=== PATIENT | male | born 1980 | race Caucasian/White ===

== ENCOUNTER 2017-07-10 15:37 | Emergency (ER) | payer MEDICAID ==
[~2017-07-10] VITALS: Ht 175.3 cm; Wt 61.2 kg
[2017-07-10 15:37] VITALS: BP 142/88
[~2017-07-10 15:37] MED LIST: ANUSOL HC1 SUPP RECTAL; ANUSOL-HC CREAM30 GM RECTAL; ATIVAN0.5 MG ORAL; COLACE100 MG ORAL; IBUPROFEN600 MG ORAL; KEFLEX500 MG ORAL; NKM; NORCO 5-325 TA1 EACH ORAL; PHENAZOPYRIDIN200 MG ORAL; STRIBILD TABLE1 EACH PO
--- NOTE | 2017-07-12 07:30 | Emergency Room Report ---
History of Present Illness General Chief Complaint: Behavioral Complaint Source: EMS Present Illness Allergies: Coded Allergies: No Known Allergies (Unverified , 12/05/13) Nursing Documentation-[facility] History Of Psychiatric Problem: Yes - ETOH abuse Physical Exam Vital Signs Date Time Temp Pulse Resp B/P (MAP) Pulse Ox O2 Delivery O2 Flow Rate FiO2 07/10/17 15:30 98.4 100 16 142/88 99 Room Air Medical Decision Making Diagnostic Impression: Primary Impression: left withou being seen ER Course Patient brought in by ambulance for anxiety. Upon arrival patient states he did not want to be evaluated and wants to leave. Patient will not provide MD provider or nurse with history Patient is cursing and yelling at staff. Patient left without being seen Last Vital Signs Date Time Temp Pulse Resp B/P (MAP) Pulse Ox O2 Delivery O2 Flow Rate FiO2 07/10/17 15:37 98.4 100 16 142/88 99 Room Air Status: unchanged Disposition: LEFT W/OUT BEING SEEN Condition: Unknown Referrals: NOT CHOSEN SELVIN/,REFERRING (PCP) ZOILA RAMON M.D. Jul 12, 2017 07:30
--- NOTE | 2017-07-12 07:30 | Emergency Room Report ---
History of Present Illness General Chief Complaint: Behavioral Complaint Source: EMS Present Illness Allergies: Coded Allergies: No Known Allergies (Unverified , 12/05/13) Nursing Documentation-[facility] History Of Psychiatric Problem: Yes - ETOH abuse Physical Exam Vital Signs Date Time Temp Pulse Resp B/P (MAP) Pulse Ox O2 Delivery O2 Flow Rate FiO2 07/10/17 15:30 98.4 100 16 142/88 99 Room Air Medical Decision Making Diagnostic Impression: Primary Impression: left withou being seen ER Course Patient brought in by ambulance for anxiety. Upon arrival patient states he did not want to be evaluated and wants to leave. Patient will not provide MD provider or nurse with history Patient is cursing and yelling at staff. Patient left without being seen Last Vital Signs Date Time Temp Pulse Resp B/P (MAP) Pulse Ox O2 Delivery O2 Flow Rate FiO2 07/10/17 15:37 98.4 100 16 142/88 99 Room Air Status: unchanged Disposition: LEFT W/OUT BEING SEEN Condition: Unknown Referrals: NOT CHOSEN SELVIN/,REFERRING (PCP) ZOILA RAMON M.D. Jul 12, 2017 07:30
--- NOTE | 2017-07-12 07:30 | Emergency Room Report ---
History of Present Illness General Chief Complaint: Behavioral Complaint Source: EMS Present Illness Allergies: Coded Allergies: No Known Allergies (Unverified , 12/05/13) Nursing Documentation-[facility] History Of Psychiatric Problem: Yes - ETOH abuse Physical Exam Vital Signs Date Time Temp Pulse Resp B/P (MAP) Pulse Ox O2 Delivery O2 Flow Rate FiO2 07/10/17 15:30 98.4 100 16 142/88 99 Room Air Medical Decision Making Diagnostic Impression: Primary Impression: left withou being seen ER Course Patient brought in by ambulance for anxiety. Upon arrival patient states he did not want to be evaluated and wants to leave. Patient will not provide MD provider or nurse with history Patient is cursing and yelling at staff. Patient left without being seen Last Vital Signs Date Time Temp Pulse Resp B/P (MAP) Pulse Ox O2 Delivery O2 Flow Rate FiO2 07/10/17 15:37 98.4 100 16 142/88 99 Room Air Status: unchanged Disposition: LEFT W/OUT BEING SEEN Condition: Unknown Referrals: NOT CHOSEN SELVIN/,REFERRING (PCP) ZOILA RAMON M.D. Jul 12, 2017 07:30
== END 2017-07-10 15:45 | disposition left against medical advice (07) ==
LOC: EDBD 15:37 → EMR 15:43
DX: F41.9 Anxiety disorder, unspecified (principal); F10.10 Alcohol abuse, uncomplicated; Z53.21 Procedure and treatment not carried out due to patient leaving prior to being seen by health care provider
CPT/HCPCS: 99281

== ENCOUNTER 2019-03-23 19:00 | Emergency (ER) | payer MEDICAID ==
[~2019-03-23] VITALS: Ht 182.9 cm; Wt 64.9 kg
[~2019-03-23 19:00] MED LIST changes: +LEXAPRO10 MG ORAL
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
[2019-03-23 19:16] VITALS: BP 148/87
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
--- NOTE | 2019-03-23 20:38 | Diagnostic Imaging Report ---
Indication: Chest pain. Trauma Technique: Continuous helical transaxial imaging of the chest was obtained from the thoracic inlet to the upper abdomen. No intravenous contrast was administered. Coronal 2-D reformats were also obtained. Total Dose length Product (DLP): 719.[address] Dose Index Volume (CTDIvol): 16.65 mGy Comparison: none Findings: Lungs are clear. No pneumothorax or consolidative opacities or interstitial identified. No pleural effusion or mediastinal fluid or hematoma identified. Osseous structures are unremarkable. Visualized upper abdomen is unremarkable. There is some breathing motion present. IMPRESSION: Negative noncontrast CT of the chest. [facility] has communicated the preliminary results to the Emergency Department. Their findings are largely concordant with this report. The CT scanner at [facility] is accredited by the [employer] and the scans are performed using dose optimization techniques as appropriate to a performed exam including Automatic Exposure control.
[2019-03-23] MEDS ORDERED: TRAMADOL HCL50 MG ORAL (21:01)
[2019-03-23] MEDS ORDERED: IBUPROFEN600 MG ORAL (21:01)
[2019-03-23 21:15] VITALS: BP 128/75
--- NOTE | 2019-03-23 21:15 | NUR ---
ED Nurse Note: pt cleared to be d/c per ERMD, pt discharge and aftercare instruction provided w/ prescription, pt education done via discussion and handout, pt advised to follow up with pcp or return to ed if changes in condition, pt vss, ambulatory w/ steady gait, left w/ all belongings accompanied by .
== END 2019-03-23 21:15 | disposition home or self-care (01) ==
LOC: EDBD 19:00 → EMR 19:33
DX: S29.011A Strain of muscle and tendon of front wall of thorax, initial encounter (principal); S00.33XA Contusion of nose, initial encounter; Y04.2XXA Assault by strike against or bumped into by another person, initial encounter
CPT/HCPCS: 71250; 99284

== ENCOUNTER 2020-02-25 03:18 | Emergency (ER) | payer MEDICAID ==
[~2020-02-25] VITALS: Ht 180.3 cm; Wt 72.6 kg
[~2020-02-25 03:18] MED LIST changes: +TRAMADOL HCL50 MG ORAL
[2020-02-25 03:26] VITALS: BP 153/102
[2020-02-25] MEDS ORDERED: TRAZODONE HCL150 MG ORAL (03:26)
[2020-02-25 03:35] VITALS: BP 153/102
--- NOTE | 2020-02-25 03:38 | Emergency Room Report ---
History of Present Illness General Chief Complaint: Behavioral Complaint Source: Patient Present Illness HPI This is a 39-year-old male with a history of HIV and bipolar. He presents with chief complaint of not feeling well. He said this been ongoing tonight. He is a very poor historian. Not cooperative. Did say that he does not feel well. Denies any fever chills. Denies any nausea or vomiting. Said that he is shaking. No cough or congestion. Nothing made it better. Nothing made it worse. He said he is taking Antabuse and has not had any alcohol since . Denies any drug abuse. Is taking Lexapro and Adderall as prescribed. Denies suicidal thoughts or homicidal thought. Allergies: Coded Allergies: No Known Allergies (Unverified , 12/05/13) COVID-19 Screening Contact w/high risk pt: No Recent Travel to affected area: No Experienced COVID-19 symptoms?: No COVID-19 Testing performed NURSING CLERK: No Patient History Past Medical History: see triage record, old chart reviewed, psych hx, HIV Past Surgical History: none Pertinent Family History: none Social History: Denies: smoking Immunizations: other Reviewed Nursing Documentation: PMH: Agreed; PSxH: Agreed Nursing Documentation-PMH Past Medical History: No History, Except For Review of Systems Constitutional: Reports: weakness Eye: Denies: eye pain, blurred vision ENT: Denies: ear pain, nose congestion, throat swelling Respiratory: Denies: cough, shortness of breath Cardiovascular: Denies: chest pain, palpitations Gastrointestinal: Denies: abdominal pain, diarrhea, nausea, vomiting Musculoskeletal: Denies: back pain, joint pain Skin: Denies: rash Neurological: Denies: headache, numbness Endocrine: Denies: increased thirst, increased urine Hematologic/Lymphatic: Denies: easy bruising All Other Systems: negative except mentioned in HPI Physical Exam Vital Signs Date Time Temp Pulse Resp B/P (MAP) Pulse Ox O2 Delivery O2 Flow Rate FiO2 02/25/20 03:22 98.2 100 22 153/102 (119) 96 Room Air Vitals with high blood pressure Sp02 EP Interpretation: reviewed, normal General Appearance: well appearing, no apparent distress, alert, other - Not cooperative Head: normocephalic, atraumatic Eyes: bilateral eye PERRL, bilateral eye EOMI ENT: hearing grossly normal, normal pharynx Neck: full range of motion, supple, no meningismus Respiratory: chest non-tender, lungs clear, normal breath sounds Cardiovascular #1: regular rate, rhythm, no murmur Gastrointestinal: normal bowel sounds, non tender, no mass, no organomegaly, no bruit, non-distended Musculoskeletal: back normal, normal range of motion Neurologic: no focal defects - Patient is shaking his legs back and forth. He would move his arm back and forth while talking to me. There is no focal deficit. He is not cooperating when I asked him to sit up to listen to his lungs. Psychiatric: anxious Medical Decision Making Diagnostic Impression: Primary Impression: Behavioral disorder ER Course Patient presents with a psychiatric issue. He is not suicidal homicidal. He is not cooperative as far as answering questions and following exams. There is no focal deficit. He is not tachycardic. I see no evidence any seizure disorder. No criteria for 5150. Patient refused IV work-up or urinalysis. Patient claimed that he cannot move or walk and has no energy. While he is not cooperative to refuse work-up, I told him I will be discharging him. He got up and walk without any difficulty. I suspect this more of a psychiatric issue rather than a physical issue. Last Vital Signs Date Time Temp Pulse Resp B/P (MAP) Pulse Ox O2 Delivery O2 Flow Rate FiO2 02/25/20 03:26 100 22 Room Air 02/25/20 03:26 98.2 153/102 96 Status: unchanged Disposition: HOME, SELF-CARE Condition: Stable Referrals: NON PHYSICIAN (PCP) Patient Instructions: Self-Destructive Behavior Additional Instructions: Abstain from drugs and alcohol. Follow-up with your doctor in 7 days. Return if worse. Charlie Anton MD Feb 25, 2020 03:38
== END 2020-02-25 03:35 | disposition left against medical advice (07) ==
LOC: EDBD 03:18 → EMR 03:30
DX: F91.9 Conduct disorder, unspecified (principal); B20 Human immunodeficiency virus [HIV] disease; F31.9 Bipolar disorder, unspecified; R53.1 Weakness
CPT/HCPCS: 99282

== ENCOUNTER 2020-10-10 22:46 | Emergency (ER) | payer MEDICAID ==
[~2020-10-10] VITALS: Ht 185.4 cm; Wt 64.9 kg
[~2020-10-10 22:46] MED LIST changes: +TRAZODONE HCL150 MG ORAL
[2020-10-10] MEDS ORDERED: ATIVAN1 MG ORAL (23:29)
--- NOTE | 2020-10-10 23:29 | Emergency Room Report ---
History of Present Illness General Chief Complaint: Behavioral Complaint Source: Patient Present Illness HPI This a 40-year-old male with psychiatric history. He presents with chief complaint of racing thoughts and paranoia. This been ongoing since last June. He said he stops drinking and it did not help. He has no drug use. He is smoking more because he hearing more voices and seems to be more anxious. Clean sleep. He already seen his primary care doctor and a psychiatrist. He is taking Atarax, Abilify and Risperdal without any relief. He denies suicidal thoughts homicidal thought. He felt persecuted. Allergies: Coded Allergies: No Known Allergies (Unverified , 12/05/13) COVID-19 Screening COVID-19 risk:Contact w/high r: No COVID-19 risk:Travel to affect: No Has patient experienced gonzales: No COVID-19 Testing performed EHS ENGINEER: Yes - 2 days ago COVID-19 Screening: Negative COVID-19 COVID-19 Testing Source: unknown Patient History Past Medical History: see triage record, old chart reviewed, psych hx Past Surgical History: none Family History: none Social History: tobacco use Immunizations: UTD Reviewed Nursing Documentation: PMH: Agreed; PSxH: Agreed Nursing Documentation-PMH Past Medical History: No History, Except For Review of Systems ENT: Denies: sore throat Cardiovascular: Denies: chest pain, palpitations Gastrointestinal/Abdominal: Denies: nausea, vomiting, diarrhea Musculoskeletal: Denies: back problems Skin: Denies: rash Psychiatric: Reports: anxiety Neurological: Denies: LOPEZ, seizures All Other Systems: negative except mentioned in HPI Physical Exam Vital Signs Date Time Temp Pulse Resp B/P (MAP) Pulse Ox O2 Delivery O2 Flow Rate FiO2 10/10/20 22:47 98.8 93 18 118/79 (92) 100 Room Air Vitals normal Sp02 EP Interpretation: reviewed, normal General Appearance: alert/responsive, no apparent distress, non-toxic Head: normocephalic, atraumatic Eyes: PERRL, EOMI ENT: oropharynx normal Neck: supple/symm/no masses Respiratory: effort normal, no rhonchi, no wheezing Cardiovascular: no murmur, gallop, rub Gastrointestinal: non-tender, no mass, non-distended, no rebound/guarding, normal bowel sounds Musculoskeletal: gait & station normal Neurologic: oriented x3, sensory intact, motor strength/tone normal Psychiatric: no suicidal/homicidal ideation, anxious Skin: no rash, normal palpation Medical Decision Making Diagnostic Impression: Primary Impression: Behavioral disorder ER Course Patient presents with behavior disorder. This may be bipolar with paranoia. He is not suicidal or homicidal. No criteria for 5150. Better after Ativan. Will discharge home with psychiatry follow-up. Last Vital Signs Date Time Temp Pulse Resp B/P (MAP) Pulse Ox O2 Delivery O2 Flow Rate FiO2 10/10/20 22:47 98.8 93 18 118/79 (92) 100 Room Air Status: improved Disposition: HOME, SELF-CARE Condition: Stable Scripts Lorazepam* (ATIVAN*) 1 Mg Tablet 1 MG ORAL THREE TIMES A DAY, #21 TAB Prov: Charlie Anton MD 10/10/20 Additional Instructions: Follow-up with your psychiatrist within a week. Return if symptoms worsen. Charlie Anton MD Oct 10, 2020 23:29
[2020-10-10] MEDS ORDERED: LORazepam Inj 2mg/ml 1ml IM ONE (23:30)
--- NOTE | 2020-10-10 23:40 | NUR ---
ER DISCHARGE NOTE: Patient is cleared to be discharged per ERMD, pt is aox4, on room air, with stable vital signs. pt was given dc and prescription instructions, pt was able to verbalize understanding, pt id band and iv site removed without complications. pt is able to ambulate with steady gait. pt took all belongings.
[2020-10-10 23:42] VITALS: BP 132/66
== END 2020-10-10 23:42 | disposition home or self-care (01) ==
LOC: EMR 23:26
DX: F91.9 Conduct disorder, unspecified (principal); F17.200 Nicotine dependence, unspecified, uncomplicated; Z79.899 Other long term (current) drug therapy
CPT/HCPCS: 96372; Z7502; 99283